=== PATIENT | female | born 1970 | race Hispanic/Latino ===

== ENCOUNTER 2018-02-10 08:03 | Outpatient (CLI) | payer OTHER | END 2018-02-10 08:04 | disposition home or self-care (01) | LOC: BICMAMMO 08:03 | PROVIDERS: ATTEND Family Medicine | DX: Z12.31 Encounter for screening mammogram for malignant neoplasm of breast (principal) | CPT/HCPCS: 77063; 77067 ==

== ENCOUNTER 2019-01-12 14:36 | Outpatient (CLI) | payer OTHER ==
--- NOTE | 2019-01-12 17:04 | RAD ---
PA AND LATERAL VIEWS CHEST: Date: 01/12/19 HISTORY: Persistent asthma. Cough. FINDINGS: The heart size is normal. The lungs are expanded without focal areas of consolidation, pneumothoraces , or pleural effusions. No acute osseous abnormalities are seen. IMPRESSION: No radiographic evidence of acute cardiopulmonary process. POS: OFF
== END 2019-01-12 14:37 | disposition home or self-care (01) ==
LOC: BICRAD 14:36
PROVIDERS: ATTEND Family Medicine
DX: J45.50 Severe persistent asthma, uncomplicated (principal)
CPT/HCPCS: 71046

== ENCOUNTER 2019-02-23 20:01 | Inpatient (IN) | payer OTHER ==
[2019-02-23] MEDS ORDERED: Acetaminophen 500 MG TAB ONE (22:24)
[2019-02-23] MEDS ORDERED: Ondansetron PF 4 MG/2 ML Vial ONE (22:34)
[2019-02-23] MEDS ORDERED: Docusate 100 MG CAP PO PRN (23:24)
[2019-02-23] MEDS ORDERED: Labetalol HCl 100 MG/20 ML VIAL SLOW IVP PRN (23:24)
[2019-02-23] MEDS ORDERED: diphenhydrAMINE 50 MG/ML VIAL IVP PRN (23:24)
[2019-02-23] MEDS ORDERED: Ondansetron PF 4 MG/2 ML Vial IVP PRN (23:24)
[2019-02-23] MEDS ORDERED: Milk Of Magnesia 30 ML UDCUP PO PRN (23:24)
[2019-02-23] MEDS ORDERED: diphenhydrAMINE 50 MG CAP PO PRN (23:24)
[2019-02-23] MEDS ORDERED: hydrALAZINE 20 MG/ML VIAL SLOW IVP PRN (23:24)
[2019-02-23] MEDS ORDERED: Acetaminophen 325 MG TAB PO PRN (23:24)
[2019-02-23] MEDS ORDERED: Promethazine 25 MG TAB PO PRN (23:24)
[2019-02-23] MEDS ORDERED: traMADol HCl 50 MG TAB PO PRN ×2 (23:30)
[2019-02-24 01:50] VITALS: BMI 28.4
[2019-02-24] MEDS: Sodium Chloride 0.9% 1,000 ML IV SCH ×2 (02:12→12:50)
[2019-02-24] MEDS: Morphine 2 MG/ML SYRINGE SLOW IVP PRN ×2 (03:55→08:43)
[2019-02-24 04:52] LABS: INR-International Normal Ratio 1.1; PTT 32.3 SEC (22.9-36.1); Prothrombin Time 13.9 SEC (12.0-14.7)
--- NOTE | 2019-02-24 05:54 | HP ---
HISTORY OF PRESENT ILLNESS: Ms. Wilcox is a 48-year-old female, who originally presented to [facility] with sudden headache. She fell and hit her head. She was worked up and found to have a subarachnoid hemorrhage along with CTA showing ruptured aneurysm and other small aneurysm. Neurosurgery was consulted. She was transferred to [facility] for further treatment. The patient is awake, alert. She is oriented to person, place, and time. She is a little sleepy, but wakes and responds appropriately. She follows commands. She complains of headache. She has some mild nuchal rigidity, may be moderate, but cranial nerves are tested and intact. I see no lateralizing sensory or motor deficits. There is no drift or neglect. REVIEW OF SYSTEMS: A 10-point review of systems is completed and is negative other than stated in the above HPI. ALLERGIES: NO KNOWN DRUG ALLERGIES. MEDICATIONS: No medications. MEDICAL HISTORY: Asthma. SURGICAL HISTORY: The patient denies surgical history. SOCIAL HISTORY: The patient denies alcohol use, drug use. No smoking history. PHYSICAL EXAMINATION: VITAL SIGNS: Blood pressure 118/64, heart rate 90, respirations 16, temperature 98.0, pain 6, and O2 sats 98% on 2 L of oxygen. CONSTITUTIONAL: The patient is awake, alert. She is oriented to person, place, and time. She appears to be uncomfortable, but nontoxic appearing. HEENT: Head is normocephalic and atraumatic. Pupils are equal, round, and reactive to light. Extraocular movements are intact. Hearing is intact. Moist mucous membranes. RESPIRATIONS: Normal work of breathing. Symmetric chest rise. EXTREMITIES: 5/5 bilateral strength in deltoids, biceps, triceps, telephone operator receptionist strength, hip flexion, hip extension, dorsiflexion, plantar flexion. Normal range of motion. NEUROLOGIC: The patient is awake, alert, oriented x3. Speech is spontaneous and fluent. Normal fund of knowledge. I do not see any sensory or motor deficits. I see no lateralizing defects. No neglect and no drift. IMAGING: CT cervical spine indicates a large-volume acute subarachnoid hemorrhage predominantly involving skull base, cisterns, may be related to an aneurysm given distribution. There is a probable superimposed inferior left frontal parenchymal hemorrhage with surrounding edema which may represent an associated head trauma. CTA, head, large left carotid terminus aneurysm; additional small aneurysms involving right carotid terminus; inferior-oriented aneurysm, left M1, left A1 segments. There is generalized vasogenic edema of the . ASSESSMENT AND PLAN: We will be admitting Ms. Wilcox to the ICU. We will get regular neuro checks on her, keeping her comfortable, head at 30 degrees. Blood pressure under [address] Paniagua will be kindly joining in and going to do formal angiography with likely coiling tomorrow. We will obtain consent for the procedure. Have antibiotics ready and she will be n.p.o. at midnight. If there are any further questions, please contact Neurosurgery. Job ID: [id number]
[2019-02-24] MEDS ORDERED: CEFAZOLIN 2 GM in Premix Bag 1 BAG IVPB SCH (07:00)
--- NOTE | 2019-02-24 07:27 | PRG ---
DATE OF SERVICE: 02/24/2019 I personally interviewed and examined the patient, reviewed the documentation of Elle Frazier PA-C, dated 02/23/2019. Briefly, Megan Wilcox is a 48-year-old woman who presented to an outside emergency department with acute onset of severe headache yesterday. CT examination of the brain revealed subarachnoid hemorrhage and a CT angiogram showed aneurysms. She was transferred to [facility] for the possibility of an endovascular coiling. I am seeing her this morning in her ICU room. She complains of headaches, but she wakes easily. She answers questions appropriately. There are no cranial neuropathies. There is no lateralizing motor or sensory deficits. Blood pressure stable and I reviewed the CT angiogram. I see 2 definitive aneurysms and no other lesions, but a diagnostic angiogram will help. 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 It is from this larger lobe that hemorrhage likely happen because of hyperdensity within the frontal lobe and this cisterns around that particular aneurysm. On the right side, there is a much smaller ophthalmic segment aneurysm, it points superior laterally, but is not bilobed. Both of them seem to have remodeled bone around them. The reports of A1 and M1 aneurysms have been made, but I do not see them. The plan today is to have my colleague, Dr. Paniagua took the patient to angiography. Finally, we will get a definitive look at all aneurysms within the brain, but will have the potential to coil the most likely source of this subarachnoid hemorrhage, which is the left ICA aneurysm. If he feels he can appropriately treat the right ICA aneurysm at the same time that would be a possibility as well or that can be deferred later. I will ask Dr. Paniagua to exercise his own judgment there. On her ICU stay, we will keep her on amlodipine to keep the blood pressure less than 130 until the aneurysms are secured and then in the coming days, we will watch for vasospasms. So far, she is a good grade subarachnoid hemorrhage and excellent neurological function. Job ID: [id number]
--- NOTE | 2019-02-24 07:58 | CT ---
PRELIMINARY REPORT/[facility]/EMERGENCY AFTER HOURS PROCEDURE: Addendum created by Bijan Hilton MD on 02/24/2019 4:09 AM Central Time ([place] & [place]) THIS REPORT CONT AINS FINDINGS THAT MAY BE CRITICAL TO PATIENT CARE. The findings were verbally communicated via telep ben conference with Karin Almeida at 4:08 AM PHYSIOLOGIST on 02/24/2019. The findings were acknowledged and understood. Initial Report created on 02/24/2019 3:58 AM Central Time ([place] & [place]) PROCEDURE INFORMATION: Exam: CT Head Without Contrast Exam date and time: 02/24/2019 3:45 AM Age: 48 years old Clinical history: Condition or disease; Patient HX: Follow up sah TECHNIQUE: Imaging protocol: Computed tomography of the head without contrast. COMPARISON: No relevant prior studies available. FINDINGS: Brain: Extensive, acute subarachnoid hemorrhage within the anterior basilar cisterns, sylvian fissure s, and anterior intrahemispheric fissure, most compatible with leaking/ruptured intracranial aneurysm , although no definite aneurysm identified in the study. No mass or acute infarction. Ventricles: Normal. Bones/joints: Normal. Sinuses: Ethmoid and bilateral maxillary sinus disease. Mastoid air cells: Normal as visualized. Soft tissues: Unremarkable. IMPRESSION: Extensive, acute subarachnoid hemorrhage within the anterior basilar cisterns, sylvian fissures, and anterior intrahemispheric fissure, most compatible with leaking/ruptured intracranial aneurysm, altho ugh no definite aneurysm identified in the study. Thank you for allowing us to participate in the care of your patient. Dictated and Authenticated by: Bijan Hilton MD 02/24/2019 3:58 AM Central Time ([place] & [place]) FINAL REPORT HEAD CT WITHOUT CONTRAST: HISTORY: Subarachnoid hemorrhage. COMPARISON: None. FINDINGS/IMPRESSION: This report is in agreement with the preliminary report by Cristino. Extensive subarachnoid hemorrhage. T here may also be intraparenchymal hemorrhage along the inferior medial left frontal lobe and a small focus of intraventricular hemorrhage along the occipital horn of the left lateral ventricle. POS: [facility]
[2019-02-24 08:28] LABS: #Eosinphils 0.1 thou/uL (0.0-0.7); #Monocytes 0.6 thou/uL (0.11-0.59); #Neutrophils 9.9 thou/uL (1.40-6.50); %Basophils 0.2 % (0.0-1.0); %Eosinophils 0.6 % (0.0-10.0); %Lymphocytes 15.6 % (21.0-51.0); %Monocytes 4.4 % (0.0-10.0); %Neutrophils 79.2 % (42.0-75.0); Hemoglobin 12.2 g/dL (12.0-16.0); Mean Corpuscular HGB CONC 33.6 g/dL (32.0-36.0); Mean Corpuscular Hemoglobin 28.5 pg (27.0-31.0); Mean Corpuscular Volume 84.7 fL (78.0-98.0); Mean Platelet Volume 7.4 fL (7.4-10.4); Platelet Count 252 thou/uL (130-400); RBC Distribution Width 13.1 % (11.5-14.5); Red Blood Cell (RBC) Count 4.27 mill/uL (4.20-5.40); White Blood Cell (WBC) Count 12.5 thou/uL (4.8-10.8)
[2019-02-24 08:54] LABS: Anion Gap 9 mmol/L (10-20); BUN (Urea Nitrogen) 7 mg/dL (7.0-18.7); Calc. Creatinine Clearance 123 mL/min (70-130); Calcium 8.8 mg/dL (7.8-10.44); Carbon Dioxide 23 mmol/L (22-29); Chloride 109 mmol/L (98-107); Estimated GFR-MDRD Greater than 90; Glucose 102 mg/dL (70-105); Potassium 3.5 mmol/L (3.5-5.1); Sodium 137 mmol/L (136-145)
[2019-02-24] MEDS ORDERED: Famotidine 20 MG TAB PO SCH (09:00)
--- NOTE | 2019-02-24 09:01 | PRG ---
DATE OF SERVICE: 02/24/2019 Ms. Wilcox is a 48-year-old female who initially evaluated in the ER at the [facility] where it was revealed that she had subarachnoid hemorrhage. A CT angiogram subsequent to that time revealed the presence of a left ICA region aneurysm. She was transferred to [facility] for further evaluation and management. I met with her and her today in the ICU. I discussed with them again the diagnosis as well as the proposed treatment this morning, which would be cerebral angiography to include coil embolization. I discussed with them all the risks and the benefits of the procedure. I feel like they completely understood all risks as well as procedure to be performed. We will schedule the procedure accordingly later this morning. Job ID: [id number]
[2019-02-24] MEDS: niMODipine 30 MG CAP PO SCH ×3 (09:12→17:59)
[2019-02-24] MEDS ORDERED: Heparin (Artline) 1,000 ML ONE (09:19)
[2019-02-24] MEDS ORDERED: Heparin 10,000 UNITS/1 ML VIAL ONE (09:19)
[2019-02-24] MEDS ORDERED: Lidocaine 1% (PF) 30 ML VIAL ONE (09:20)
[2019-02-24] MEDS ORDERED: Heparin (Artline) 500 ML ONE ×2 (09:20→14:01)
[2019-02-24] MEDS ORDERED: PROPOFOL 200 MG/20 ML VIAL ONE (10:16)
[2019-02-24] MEDS ORDERED: Glycopyrrolate 0.2 MG/ML 5 ML SYRINGE ONE (10:16)
[2019-02-24] MEDS ORDERED: Rocuronium Bromide 10 MG/ML (10ML VIAL) ONE (10:16)
[2019-02-24] MEDS ORDERED: Lidocaine 1% PF 5 ML VIAL ONE (10:16)
[2019-02-24] MEDS ORDERED: Ondansetron PF 4 MG/2 ML Vial ONE (10:16)
[2019-02-24] MEDS ORDERED: Iopamidol 370 76% 50 ML VIAL FS ONE (11:26)
[2019-02-24] MEDS ORDERED: Iopamidol 370 76% 100 ML VIAL ONE (11:26)
[2019-02-24] MEDS ORDERED: Phenylephrine HCL 10 MG/ML VIAL ONE (12:57)
[2019-02-24] MEDS ORDERED: Fentanyl 100 MCG/2 ML VIAL ONE (12:57)
[2019-02-24 13:51] VITALS: TEMP 99
--- NOTE | 2019-02-28 09:48 | DIS ---
DATE OF ADMISSION: 02/23/2019 DATE OF DISCHARGE: 02/24/2019 Ms. Wilcox is a 48-year-old female, who was transferred to [facility] following a fall and was taken to [facility]. A subarachnoid hemorrhage was found along with ruptured aneurysm. She was transferred to our facility. She was transferred to an outside facility on 02/24/2019. BRIEF HOSPITAL COURSE: Ms. Wilcox is a 48-year-old female. She sustained a subarachnoid hemorrhage due to a ruptured aneurysm. She was brought into our facility and the blood pressure was controlled. We had our colleague, Dr. Paniagua do a CT angiogram to try and coil, however, this was unsuccessful and on 02/24/2019, we transferred her to outside facility for continued treatment. If there are any further questions, please contact Neurosurgery. Job ID: [id number]
--- NOTE | 2019-03-01 22:23 | PQF ---
RAYMOND ALANIZ JAMES BRADLEY MD [id number] CLINICAL DOCUMENTATION CLARIFICATION FORM: POST DISCHARGE Addendum to original discharge summary date: ____ Late entry note date: __ DATE:03/01/2019 ATTN:LETICIA OROZCO Please exercise your independent, professional judgment in responding to the clarification form. Clinical indicators are provided on the bottom of this form for your review Please check appropriate box(s) to clarify if the following diagnosis has been ruled in or ruled out: Vasogenic edema [ ] Ruled in diagnosis [ ] Continue to treat [ ] Resolved [ ] Ruled out diagnosis [ ] Cannot rule out diagnosis [ ] Other diagnosis [ ] Unable to determine For continuity of documentation, please document condition throughout progress notes and discharge summary. Thank You. CLINICAL INDICATORS - SIGNS / SYMPTOMS / LABS Subarachnoid hemorrhage along with CTA showing ruptured aneurysm ant other small aneurysm-Documented in H&P on 02/23 by Elle Frazier CTA head large left carotid terminus aneurysm additional small aneurysm involving right carotid terminus,inferior-oriented aneurysm,left M1,Left A1 segments. There is generalized vasogenic edema-Documented in H&P on 02/23 by Elle Frazier RISK FACTORS Subarachnoid hemorrhage along with CTA showing ruptured aneurysm ant other small aneurysm-Documented in H&P on 02/23 by Elle Frazier TREATMENTS CT Brain on 02/24 Cerebral angiography to include coli embolization-Documented in PN on 02/24 by Leticia Orozco SAP Civil Project Engineer Crystal Reports Winform Viewer (This form is maintained as a part of the permanent medical record) 2014 [employer]. All Rights Reserved [email or web address] [not provided] MTDD
--- NOTE | 2019-03-15 17:40 | CCL ---
DATE OF SERVICE: 02/23/19 SURGEON: Julio Cesar Paniagua M.D. MANAGER CREDIT COLLECTIONS: None. INDICATION: Aneurysmal subarachnoid hemorrhage. PROCEDURE: Cerebral angiography with attempted coil embolization of aneurysm. ANESTHESIA: General. TECHNIQUE: The patient was brought into the angiogram suite and placed on the table in the supine position. She was placed under general anesthesia. Both groins were prepped and draped in the usual sterile fashion . 1% lidocaine was used to inject the right groin. A 5 Croatian micropuncture set was used to gain acce ss to the right common femoral artery. Using the Seldinger technique, a 5 Croatian sheath was placed an d a 5 Croatian concentric guide catheter was placed through which a long diagnostic catheter was placed over a Bentzen guide wire and advanced into the aortic arch where the right internal carotid artery was selective catheterized. AP and lateral as well as a 3D rotational angiogram were performed. Iza ography revealed the presence of a complex ICA region aneurysm which was multilobulated and consisted of three separate distinct aneurysms. The largest of which was conical in shape without significant discernible adin. I did place a microcatheter into the larger aneurysm to see if I could get a coil m ast to hold within the distal aspect of the aneurysm but all the coils deployed prolapsed into the pa rent artery and were not safe to deploy. As the result, no coiling procedure was performed. Microcath eter was then removed. A controlled angiogram was performed to ensure filling of all normal vessels t hereafter. The procedure came to an end without known complication. IMPRESSION: The patient underwent successful cerebral angiography. Coiling was not performed secondary to morphol ogy and shape of the patient's aneurysms.
== END 2019-02-24 18:40 | disposition short-term general hospital (02) | DRG 66 ==
LOC: ERS 20:01 → CCU 21:39
PROVIDERS: ADMIT Neurological Surgery; ATTEND Neurological Surgery
PROC: 0WJ Anatomical Regions, General, Inspection (ICD-10-PCS; 2019-02-23)
PROC: B31R1ZZ Fluoroscopy of Intracranial Arteries using Low Osmolar Contrast (ICD-10-PCS; principal; 2019-02-24)
DX: I60.01 Nontraumatic subarachnoid hemorrhage from right carotid siphon and bifurcation (principal); R29.700 NIHSS score 0; R40.2362 Coma scale, best motor response, obeys commands, at arrival to emergency department; R40.2142 Coma scale, eyes open, spontaneous, at arrival to emergency department; R40.2252 Coma scale, best verbal response, oriented, at arrival to emergency department
CPT/HCPCS: 36223; 36415; 70450; 80048; 85025; 85610; 85730; 96374; C1887; J1644; J1953; J2001; J2270; J2370; J2405; J2704; J3010; Q9967

== ENCOUNTER 2020-04-29 09:45 | Outpatient (CLI) | payer OTHER ==
--- NOTE | 2020-04-29 10:16 | MMO ---
Bilateral MAMMO Bilat Screen [facility]. CLINICAL HISTORY: Patient is 50 years old and is seen for screening. The patient has no family history of breast cancer. The patient has no personal history of cancer. VIEWS: The views performed were: bilateral craniocaudal with tomosynthesis and bilateral mediolateral oblique with tomosynthesis. FILMS COMPARED: The present examination has been compared to prior imaging studies performed at [facility] on 08/20/2008, 08/20/2011, 09/15/2012 and 02/10/2018. This study has been interpreted with the assistance of computer-aided detection. MAMMOGRAM FINDINGS: There are scattered fibroglandular densities. Finding 1: There are stable benign appearing calcifications seen in both breasts. Finding 2: There are stable benign appearing densities seen in both breasts. There are no suspicious masses, suspicious calcifications, or new areas of architectural distortion. IMPRESSION: THERE IS NO MAMMOGRAPHIC EVIDENCE OF MALIGNANCY. A ROUTINE FOLLOW-UP MAMMOGRAM IN 1 YEAR IS RECOMMENDED. THE RESULTS OF THIS EXAM WERE SENT TO THE PATIENT. ACR BI-RADS Category 2 - Benign finding MAMMOGRAPHY NOTE: 1. A negative mammogram report should not delay a biopsy if a dominant of clinically suspicious mass is present. 2. Approximately 10% to 15% of breast cancers are not detected by mammography. 3. Adenosis and dense breasts may obscure an underlying neoplasm. Reported by: DORA ARGUELLES MD Electonically Signed: [id number]
== END 2020-04-29 09:46 | disposition home or self-care (01) ==
LOC: BICMAMMO 09:45
PROVIDERS: ATTEND Family Medicine
DX: Z12.31 Encounter for screening mammogram for malignant neoplasm of breast (principal)
CPT/HCPCS: 77063; 77067